=== PATIENT | female | born 1990 | race Caucasian/White ===

== ENCOUNTER 2022-10-10 11:54 | Emergency (ER) | payer OTHER, SELFPAY ==
--- NOTE | 2022-10-10 13:48 | ED.GENADULT ---
HPI - General Adult General Chief complaint: Back Pain/Injury Stated complaint: back pain Time Seen by Provider: 10/10/22 13:48 Source: patient Mode of arrival: ambulatory Limitations: no limitations History of Present Illness HPI narrative: 32-year-old female patient presents to [facility] with complaints of low back pain that started suddenly about a day ago. Patient states of a kind of an achy feeling is all way across the back. Denies any abdominal pain, nausea, vomiting or diarrhea. Denies fevers, body aches or chills. Denies any pain with urination but states she has noticed some blood in her urine. Related Data Home Medications Medication Instructions Recorded Confirmed Mirena See Rx Instructions .Route .COMPLEX 10/10/22 10/10/22 Allergies Allergy/AdvReac Type Severity Reaction Status Date / Time No Known Allergies Allergy Verified 10/10/22 13:55 Review of Systems Review of Systems: CONSTITUTIONAL: Denies fever, chills, or sweats. EYES: Denies visual changes, redness, or discharge. ENT: Denies rhinorrhea, congestion, sore throat, or otalgia. CARDIOVASCULAR: Denies chest pain, palpitations, or edema. RESPIRATORY: Denies cough or dyspnea. GASTROINTESTINAL: Denies abdominal pain, nausea, vomiting, or diarrhea. GENITOURINARY: Denies dysuria or hematuria. SKIN: Denies rash or itching. MUSCULOSKELETAL: positive low back pain, denies joint pain, or myalgia. NEUROLOGIC: Denies headache, numbness, or weakness. PSYCHIATRIC: Denies anxiety or depression. [facility] Past Medical History Medical History Cleft lip Surgical History Surgical History History of placement of ear tubes Comments At the time of my signature I agree with nursing past medical history, surgical, social, and family history. There is no relevant family history pertinent to the presenting complaint. Exam Narrative: GENERAL: Well-appearing, well-nourished, and in no acute distress. HEAD: Normocephalic, atraumatic. EYES: PERRLA and EOMI. ENT: Nares clear, no rhinorrhea or epistaxis. Mucous membranes moist. NECK: Supple. No lymphadenopathy CHEST: Clear to auscultation. No respiratory distress. HEART: Regular rate and rhythm. No murmur heard. Normal peripheral pulses. ABDOMEN: Soft, nontender, nondistended, normal active bowel sounds. EXTREMITIES: Normal range of motion. No edema. BACK: Patient is able to ambulated without assistance. Pt is seated on the stretcher in no obvouis distress. No surface trauma noted. No muscle tenderness to Palpation. No spasm or mass. No step-offs or deformity noted to the cervical, thoracic or lumbar spine to firm Palpation at the midline. No CVA tenderness to percussion. No saddle anesthesia. negative straight leg raise. ROM: able to stand erect. Normal flexion, extension, Lateral bending and rotation without limitation or complaint of pain. SKIN: Warm, dry, no rash. NEURO: No focal deficits. Alert and oriented x3. Course Course Level of Care: Express Care Visit Vital Signs Vital signs: Vital Signs Temperature 36.4 C L 10/10/22 14:02 Pulse Rate 74 10/10/22 14:02 Blood Pressure 134/78 10/10/22 14:02 Pulse Oximetry 100 10/10/22 14:02 Oxygen Delivery Room Air 10/10/22 14:02 Temperature 36.4 C L 10/10/22 14:02 Pulse Rate 74 10/10/22 14:02 Blood Pressure 134/78 10/10/22 14:02 Pulse Oximetry 100 10/10/22 14:02 Oxygen Delivery Room Air 10/10/22 14:02 vital signs reviewed The patient has been informed that they may have pre-hypertension or Hypertension based on a BP reading in the department. I recommend that the patient call the primary care provider listed on their discharge instructions or a physician of their choice this week to arrange follow up for further evaluation of possible pre-hypertension or Hypertension Medical Decision Making [facility]
[2022-10-10 14:02] VITALS: BP 134/78; PULSE 74; RESP 18; TEMP 36.4; O2SAT 100
== END 2022-10-10 14:15 | disposition home or self-care (01) ==
PROVIDERS: Emergency Provider Nurse Practitioner Family; PCP Physician Assistant
DX: N39.0 Urinary tract infection, site not specified (principal)
CPT/HCPCS: 81003; 87077; 87086; 87088; 99213; G0463

== ENCOUNTER 2023-03-29 11:08 | Outpatient (CLI) | payer OTHER, SELFPAY ==
[2023-04-01 11:03] LABS: NIL 0.01 IU/mL; Quantiferon TB Plus, 1T NEGATIVE (NEGATIVE); TB1-NIL 0.01 IU/mL; TB2-NIL 0.02 IU/mL
== END 2023-03-29 11:09 | disposition home or self-care (01) ==
PROVIDERS: PCP Physician Assistant; Visit Provider Physician Assistant
DX: Z11.1 Encounter for screening for respiratory tuberculosis (principal)
CPT/HCPCS: 36415; 86480

== ENCOUNTER 2023-06-24 10:26 | Outpatient (CLI) | payer OTHER, SELFPAY ==
[2023-06-24 11:41] LABS: Beta HCG Quantitative 45.31 mIU/ML
[2023-06-30 07:03] LABS: Progesterone 0.3 ng/mL (***)
== END 2023-06-24 10:27 | disposition home or self-care (01) ==
LOC: ANHLAB 10:29
PROVIDERS: PCP Family Medicine; Visit Provider Obstetrics & Gynecology
DX: O20.0 Threatened abortion (principal); Z3A.00 Weeks of gestation of pregnancy not specified
CPT/HCPCS: 36415; 84144; 84702

== ENCOUNTER 2023-06-28 17:12 | Outpatient (CLI) | payer OTHER, SELFPAY ==
[2023-07-01 06:43] LABS: Progesterone 0.4 ng/mL (***)
== END 2023-06-28 17:13 | disposition home or self-care (01) ==
LOC: ANHLAB 17:14
PROVIDERS: PCP Family Medicine; Visit Provider Obstetrics & Gynecology
DX: O20.0 Threatened abortion (principal); Z3A.00 Weeks of gestation of pregnancy not specified
CPT/HCPCS: 36415; 84144

== ENCOUNTER 2024-05-29 11:23 | Inpatient (IN) | payer OTHER, SELFPAY ==
[2024-05-29] VITALS (20 sets, daily range): BP systolic 124–159; BP diastolic 70–111; PULSE 72–103; RESP 18; TEMP 36.1–36.8; O2SAT 96
[2024-05-29 12:29] LABS: Basophils Percent Auto 0.2 % (0.2-1.2); Eosinophils Percent Auto 0.3 % (0-4.4); Hematocrit 36.8 % (37.0-47.0); Hemoglobin 12.8 g/dL (12.0-15.0); Immature Granulocyte Absolute 0.04 K/mm3 (0.00-0.031); Immature Granulocyte Percent A 0.3 % (0-0.5); Lymphocytes Absolute Auto 1.08 K/mm3 (0.9-3.2); Lymphocytes Percent Auto 9.4 % (18.3-44.2); Mean Corpuscular HGB Conc 34.8 g/dl (32-36); Mean Corpuscular Hemoglobin 28.7 pg (26-34); Mean Corpuscular Volume 82.5 fl (80-100); Mean Platelet Volume 10.3 fl (7.4-10.4); Monocytes Absolute Auto 0.4 K/mm3 (0.1-0.6); Monocytes Percent Auto 3.4 % (2.6-8.5); Neutrophils Absolute Auto 9.9 K/mm3 (1.3-6.7); Neutrophils Percent Auto 86.4 % (45.5-73.1); Platelet Count Result 326 k/mm3 (150-375); Red Blood Count 4.46 M/mm3 (4.2-5.4); Red Cell Distribution Width 13.3 % (11.5-14.5); White Blood Count 11.5 K/mm3 (4.5-10.0)
[2024-05-29] MEDS: LACTATED RINGERS 1,000 ML 125 ML IV CONT (12:29)
[2024-05-29] MEDS: AMPICILLIN 2 GM/NS 100 ML 2 GM/100 ML BAG IVPB (12:29)
--- NOTE | 2024-05-29 12:38 | LDADM ---
This patient, Cassandra York, was admitted to Labor/Delivery/Recovery 109 on 05/29/24 at 11:23. Plans for labor, pain management and were discussed with patient. Patient/family oriented to hospital policies and general routines including ID bracelet, bed and alarms, visiting hours, pain management, procedures, bathroom and other care routines, personal items, smoking policy, room service/diet and guest tray routines, security routines, and visiting hours. Patient/Family are encouraged to report perceived risks to care and to ask questions if they do not understand what they are told or what they should do. See [facility] for further documentation.
[2024-05-29 12:48] LABS: Alanine Aminotransferase 23 U/L (6-35); Albumin Level 3.9 g/dL (3.5-5.1); Alkaline Phosphatase 121 U/L (38-126); Anion Gap 9 mmol/L (4-12); Aspartate Amino Transferase 29 U/L (14-36); Bilirubin,Total 0.3 mg/dL (0.2-1.3); Blood Urea Nitrogen 11 mg/dL (7-17); Calcium 9.2 mg/dL (8.4-10.2); Carbon Dioxide 20 mmol/L (22-30); Chloride 105 mmol/L (98-107); Estimated Glomerular Filt Rate > 60; Glucose 98 mg/dL (65-110); Potassium 4.1 mmol/L (3.4-5.0); Sodium 134 mmol/L (137-145); Uric Acid 6.1 mg/dL (2.5-7.5)
--- NOTE | 2024-05-29 12:53 | WPDOBADMIT ---
Obstetrics - Admit Note Admission Note: record reviewed. Additions to the history and/or subsequent changes in the physical findings follow. 33 y/o at 39 3/7 weeks here with contractions. GBS pos. Cervix 6 cm on admission. AVSS NST reactive TOCO: contractions every 2-3 min ABD soft, nontender, gravid, vertex EXT nontender Cervix 6/90/-1. AROM with clear fluid. A: IUP at term with labor. GBS pos. P: Ampicillin. Anticipate .
[2024-05-29 13:22] LABS: HIV 1/2 Ab P24 Ag Result Negative (Negative)
[2024-05-29 15:05] LABS: Rapid Plasma Reagin Non-Reactive (NonReactive)
[2024-05-29] MEDS: OXYTOCIN 30 UNITS/NS 500 ML 30 UNITS/500 ML BAG 999 UNITS IV CONT (16:15)
--- NOTE | 2024-05-29 16:32 | PM.OBPRVD ---
OB - Vaginal Delivery Note Procedure Delivery date: 05/29/24 Events: Positive Group B Strep (GBS) and Other (Labor at term) Induction method: None Delivery monitor: External FHT and External Uterine Route of delivery: Laceration Description: Perineal - 2nd Degree Delivery repair: vicryl (3-0) Specimen: Yes (cord blood) Quantitative Blood Loss (ml): 240 Anesthesia type: Local (1% lidocaine) Disposition: PACU Complications: None Narrative: 33 y/o at 39 3/7 weeks gestation who presented to the hospital with contractions. Labor was diagnosed. She was given ampicillin for GBS colonization. Amniotomy was performed with return of clear fluid. Her labor progressed and her cervix dilated completely. She pushed with good effort and delivered the infant's head to the perineum, followed by the body. The nose and mouth were bulb suctioned. After a delay, the cord was clamped and cut. The infant was handed off the field. Cord blood was collected. The placenta delivered spontaneously and was grossly normal in appearance. The usual 3 vessel cord was noted. A second degree midline perineal laceration was sustained. This was infiltrated with 10 mL 1% lidocaine and reapproximated using 3 0 Vicryl in the usual layered fashion. Excellent hemostasis resulted as did excellent reapproximation of the normal anatomy. Needle and instrument counts were correct. The patient was taken to recovery room in stable condition. The infant went to the nursery in stable condition. I was present and scrubbed for the entire delivery. Baby Date of : 05/29/24 Time of : 16:10 Gestational Age by Date: 39 Infant gender: Female presentation: vertex position: Left Occiput Anterior Placenta delivery description: Spontaneous and Normal Configuration Cord Vessel Description: 3 Vessels and Delayed Cord Clamping score one minute: 9 score five minutes: 9
--- NOTE | 2024-05-29 16:35 | PM.OBDSVD ---
DS: Admitting Diagnosis Discharge Date 05/31/24 Admitting Diagnosis IUP at 39 3/7 weeks Labor GBS colonization DS: Discharge Diagnosis Discharge Diagnosis (1) (normal spontaneous vaginal delivery): Code(s): O80 - Encounter for full-term uncomplicated delivery Status: Acute (2) GBS (group B Streptococcus carrier), +RV culture, currently : Code(s): O99.820 - Streptococcus B carrier state complicating Status: Acute OB - DS: Summary OB Procedures : None OB Procedures Intrapartum: Spontaneous Vag Delivery and GBS prophylaxis OB Procedures: : None Peripartum Data Laceration Description: Perineal - 2nd Degree Time Spent with Patient Time attestation: Total time spent providing and/or coordinating discharge services: DS: Data Data Completed and Pending Labs on day of discharge: Labs from last 24 hours 05/29/24 05/29/24 12:22 12:22 WBC 11.5 H RBC 4.46 Hgb 12.8 Hct 36.8 L MCV 82.5 MCH 28.7 MCHC 34.8 RDW 13.3 Plt Count 326 MPV 10.3 Immature Gran % (Auto) 0.3 Neut % (Auto) 86.4 H Lymph % (Auto) 9.4 L Moffat % (Auto) 3.4 Eos % (Auto) 0.3 Baso % (Auto) 0.2 Lymph # (Auto) 1.08 Moffat # (Auto) 0.4 Eos # (Auto) 0.0 Baso # (Auto) 0.0 Abs Immat Gran (auto) 0.04 H Absolute Neuts (auto) 9.9 H Absolute Nucleated RBC 0.000 Nucleated RBC % 0.0 Sodium 134 L Potassium 4.1 Chloride 105 Carbon Dioxide 20 L Anion Gap 9 BUN 11 Creatinine 0.60 L Estim Creat Clear Calc Not Reportable Estimated GFR > 60 Glucose 98 Uric Acid 6.1 Cancelled Calcium 9.2 Total Bilirubin 0.3 AST 29 ALT 23 Alkaline Phosphatase 121 Total Protein 7.0 Albumin 3.9 RPR Non-reactive HIV 1&2 Ab/P24 Ag 4thGn Negative Blood Type A Positive Antibody Screen Negative Discharge Plan Discharge Attending physician on discharge: Marco A Adams Discharging Clinician: Marco A Adams Patient Disposition: Home, Self-Care Activity: pelvic rest Diet: regular Discharge Instructions: Call or return if temperature above 100.4? F, increased abdominal pain, increased vaginal bleeding or any new problems. Stand Alone Forms: General Discharge Information Follow-up/Referrals: Marco A Adams MD [Physician] - 6 Weeks Discharge Medications: New ibuprofen 600 mg tablet 600 mg PO Q6H PRN (Reason: cramps) Qty: 30 0RF Continued Saccharomyces boulardii [Daily Probiotic (S. boulardii)] 250 mg capsule 250 mg PO BID triamcinolone acetonide 0.1 % cream 1 applic topical BID PRN (Reason: atopic dermatitis ) Qty: 30 0RF valacyclovir 1 gram tablet 1,000 mg PO Q12H PRN (Reason: cold sores) Qty: 30 0RF [id number] 29 mg iron- 1 mg tablet 1 tablet PO DAILY Qty: 30 6RF Date of admission: 05/29/24 11:23 Primary Care Provider: Trinidad Sepulveda Admitting Provider: Marco A Adams Attending physician on admission: Marco A Adams Condition: Stable
[2024-05-29] MEDS: IBUPROFEN 600 MG TABLET PO ×2 (16:55→23:55)
[2024-05-29] MEDS: OXYTOCIN 30 UNITS/NS 500 ML 30 UNITS/500 ML BAG 125 UNITS IV CONT (16:55)
--- NOTE | 2024-05-29 19:11 | PC.NURSE ---
Patient transferred to post room #283 via ( W/C ). Support person present. Oriented to unit, room, information board, rooming in, admission packet and security measures. Patient verbalizes understanding.
[2024-05-30 03:18] VITALS: BP 115/70; PULSE 77; RESP 16; TEMP 37.1; O2SAT 97
[2024-05-30] MEDS: ACETAMINOPHEN 325 MG TABLET 650 MG PO ×3 (04:54→22:30)
[2024-05-30 05:11] LABS: Hematocrit 30.7 % (37.0-47.0); Hemoglobin 10.5 g/dL (12.0-15.0)
[2024-05-30 07:55] VITALS: BP 112/68; PULSE 78; RESP 16; TEMP 36.4; O2SAT 99
[2024-05-30] MEDS: IBUPROFEN 600 MG TABLET PO ×2 (08:23→17:37)
[2024-05-30] MEDS: MULTIVIT/MIN/PREN/FOL AC/IRON TABLET 1 TAB PO (08:23)
[2024-05-30] MEDS: DOCUSATE SODIUM 100 MG CAPSULE PO (08:24)
--- NOTE | 2024-05-30 08:46 | P.PNOB_ITS ---
OB - PN: Subj Subjective Date/time seen: 05/30/24 08:46 Narrative: Pain OK. OB - PN: Obj Data Labs 05/30/24 04:22 05/29/24 12:22 Labs: Laboratory Results - last 24 hr 05/29/24 05/29/24 05/30/24 12:22 12:22 04:22 WBC 11.5 H RBC 4.46 Hgb 12.8 10.5 L Hct 36.8 L 30.7 L MCV 82.5 MCH 28.7 MCHC 34.8 RDW 13.3 Plt Count 326 MPV 10.3 Immature Gran % (Auto) 0.3 Neut % (Auto) 86.4 H Lymph % (Auto) 9.4 L Bradford % (Auto) 3.4 Eos % (Auto) 0.3 Baso % (Auto) 0.2 Lymph # (Auto) 1.08 Bradford # (Auto) 0.4 Eos # (Auto) 0.0 Baso # (Auto) 0.0 Abs Immat Gran (auto) 0.04 H Absolute Neuts (auto) 9.9 H Absolute Nucleated RBC 0.000 Nucleated RBC % 0.0 Sodium 134 L Potassium 4.1 Chloride 105 Carbon Dioxide 20 L Anion Gap 9 BUN 11 Creatinine 0.60 L Estim Creat Clear Calc Not Reportable Estimated GFR > 60 Glucose 98 Uric Acid Cancelled 6.1 Calcium 9.2 Total Bilirubin 0.3 AST 29 ALT 23 Alkaline Phosphatase 121 Total Protein 7.0 Albumin 3.9 RPR Non-reactive HIV 1&2 Ab/P24 Ag 4thGn Negative Blood Type A Positive Antibody Screen Negative OB - PN A/P Plan day: 1 Comments: A: PPD#1, doing well. P: Routine care. Exam Psych: Other: AVSS ABD soft, nontender, fundus firm EXT nontender
--- NOTE | 2024-05-30 10:30 | PC.NURSE ---
Went to room to meet patient and discuss needs. Mom was attempting to feed in football with baby swaddled in 2 blankets. She said that previously unwrapping baby had not help to wake her. We removed the swaddle and woke baby. Mom put her in football hold. Assisted mother to latch to the [right] breast in [football] position. Infant [was] able to maintain an appropriate latch with some stimulation. Mother [declines] significant nipple pain, just has some tenderness. Encouraged mother to keep awake and nursing at the breast for 15 minutes. Mother taught to listen for infant swallowing during feedings. Mother voiced understanding of the education shared, to call for assistance if the does not latch or if there is discomfort with . name/number on white board. Reported to the Primary RN.?
[2024-05-30 12:31] VITALS: BP 114/68; PULSE 85; RESP 18; TEMP 36.8; O2SAT 98
[2024-05-30] MEDS: WITCH HAZEL 40 PADS 1 PAD TOPICAL (14:05)
[2024-05-30 22:36] VITALS: BP 109/67; PULSE 71; RESP 18; TEMP 36.8; O2SAT 98
[2024-05-31] MEDS: IBUPROFEN 600 MG TABLET PO ×2 (01:10→08:35)
[2024-05-31 07:55] VITALS: BP 126/78; PULSE 72; RESP 18; TEMP 36.4; O2SAT 98
--- NOTE | 2024-05-31 08:31 | PC.NURSE ---
On 05/31/24, the student, Viviane Calderón, provided care and completed [facility] documentation on this patient. I have reviewed the student's documentation and agree with the findings.
[2024-05-31] MEDS: DOCUSATE SODIUM 100 MG CAPSULE PO (08:35)
[2024-05-31] MEDS: MULTIVIT/MIN/PREN/FOL AC/IRON TABLET 1 TAB PO (08:35)
--- NOTE | 2024-05-31 08:45 | PC.NURSE ---
Consulted with mother concerning needs and she shared her ability to independently latch infant. She has some nipple soreness and she is using breastmilk, lanolin and silverettes for comfort. Reminded her to always use good hand hygiene when touching her breast. Mother is feeding appropriately for growth of and understands stimulating to eat if needed. has had appropriate feedings in the last 24 hours meets the outcomes for weight, output, blood sugar and jaundice at this time. Observed mom latching baby to the left breast appropriately in football hold. Baby had some intermittent swallowing and we reviewed listening/watching for swallows and that the suck/swallow ratio should decrease as her milk supply increases. Reinforced understanding of milk production, transition of milk, signs of adequate intake, transition of stool, prevention/relief of engorgement, plugged ducts, mastitis, responsive watching for feeding cues, the different methods of stimulating to breastfeed 1-3 hours after the start of the last feeding, community resources, and when to call a provider using the resource of the feeding sheet along with the mom and baby guide. Mother voiced understanding of the information shared, is confident to continue effectively her infant at home, when to call for assistance, denies any additional assistance or education at this time. Reported to the Primary RN.
--- NOTE | 2024-05-31 08:50 | PM.OBPNVD ---
OB - PN: Subj Subjective Date/time seen: 05/31/24 08:50 Narrative: Pain OK. Would like to go home. OB - PN: Obj Data Labs 05/30/24 04:22 05/29/24 12:22 OB - PN A/P Plan day: 2 Comments: A: PPD#2, doing well. P: Home to f/u 6 weeks. Exam Psych: Other: AVSS ABD soft, nontender, fundus firm EXT nontender
[2024-06-01 08:36] VITALS: BP 131/91; PULSE 76; RESP 18; TEMP 36.7; O2SAT 100
== END 2024-05-31 11:26 | disposition home or self-care (01) | DRG 807 ==
LOC: ANHLDR 16:36 → ANHOB2 19:12
PROVIDERS: Admitting Provider Obstetrics & Gynecology; PCP Family Medicine; Visit Provider Obstetrics & Gynecology
DX: O99.824 Streptococcus B carrier state complicating childbirth (principal); Z37.0 Single live birth; O70.1 Second degree perineal laceration during delivery; O69.82X0 Labor and delivery complicated by other cord entanglement, without compression, not applicable or unspecified; Z3A.39 39 weeks gestation of pregnancy
CPT/HCPCS: 36415; 80053; 84550; 85014; 85018; 85025; 86592; 86703; 86850; 86900; 86901; A9270; G0432; J0290; J2590; J7120